=== PATIENT | female | born 1940 | race Caucasian/White ===

== ENCOUNTER → 2018-07-20 | Outpatient (CLI) | payer OTHER, MEDICARE | LOC: FIMAGING 13:14 | PROVIDERS: ATTEND Orthopaedic Surgery | DX: M17.11 Unilateral primary osteoarthritis, right knee (principal) ==

== ENCOUNTER → 2018-08-02 | Outpatient (CLI) | payer OTHER, MEDICARE | LOC: GIMAGING 14:45 ==

== ENCOUNTER 2018-08-15 08:29 | Observation (INO) | payer OTHER, MEDICARE ==
--- NOTE | 2018-08-15 06:19 | PDHPUP ---
History & Physical Update H&P update statement: This history and physical update is based on an assessment of the patient which was completed after admission or registration (within 24 hours), but prior to the surgery/procedure. H&P update: H&P reviewed & patient examined, no change in patient's condition since H&P completed
[~2018-08-15 08:29] MED LIST: ROPIVACAINE 0.2% 80 MG, EPINEPHrine 0.2 MG, KETOROLAC TROMETHAMINE 30 MG in SYRINGE 0 ML IU ONE; TRANEXAMIC ACID 3,000 MG in NS (SYRINGE) 50 ML IRR ONE; TRANEXAMIC ACID 3,000 MG/50 ML BAG IRR ONE; VANCOMYCIN 1 GM VIAL ONE
[2018-08-15] MEDS ORDERED: DEXAMETHASONE 4 MG/ML VIAL IVP ONE (11:06)
[2018-08-15] MEDS ORDERED: ACETAMINOPHEN 325 MG TAB PO ONE (11:06)
[2018-08-15] MEDS ORDERED: FAMOTIDINE 20 MG TAB PO ONE (11:06)
[2018-08-15] MEDS ORDERED: ceFAZolin 2 GM/DEXTROSE 100 ML IV ONE (11:06)
[2018-08-15] MEDS ORDERED: LR 1,000 ML IV ONE (11:07)
--- NOTE | 2018-08-15 11:16 | PDANEPAE ---
ANE History of Present Illness OA knee ANE Past Medical History - Cardiovascular History Hx Hypertension: Yes Hx Arrhythmias: No Hx Chest Pain: No Hx Coronary Artery / Peripheral Vascular Disease: No Hx CHF / Valvular Disease: No Hx Palpitations: No Cardiovascular History Comment: pcp monitors bp medications - Pulmonary History Hx COPD: No Hx Asthma/Reactive Airway Disease: No Hx Recent Upper Respiratory Infection: No Hx Oxygen in Use at Home: No Hx Sleep Apnea: No Sleep Apnea Screening Result - Last Documented: Negative - Neurologic History Hx Cerebrovascular Accident: No Hx Seizures: No Hx Dementia: No - Endocrine History Hx Diabetes: No Hypothyroid: No Hyperthyroid: No Obesity: no - Renal History Hx Renal Disorders: Yes Renal History Comment: hx of kidney stones. recent uti - Liver History Hx Hepatic Disorders: No - Neurological & Psychiatric Hx Hx Neurological and Psychiatric Disorders: Yes Neurological / Psychiatric History Comment: anxiety. depression. insomnia - Cancer History Hx Cancer: Yes Cancer History Comment: basal cell - Congenital Disorder History Hx Congenital Disorders: No - GI History GERD: mild Hx Gastrointestinal Disorders: Yes Gastrointestinal History Comment: GERD - Other Health History Other Health History: OA. wears glasses. bilateral hearing aides - Chronic Pain History Chronic Pain: Yes (right knee) - Surgical History Prior Surgeries: vilma. lithotripsy ANE Review of Systems Review of systems is: negative Review of Systems: - Exercise capacity METS (RN): 4 METS ANE Patient History - Allergies Allergies/Adverse Reactions: No Known Allergies Allergy (Verified 08/01/18 10:52) - Home Medications Home medications: home medication list seen and reviewed Home Medications: Atorvastatin Calcium [Lipitor 10 mg (*)] 10 mg PO DAILY 07/27/18 [Last Taken Unknown] Carboxymethylcellulose 1% [Refresh Celluvisc (*)] 1 drop EACHEYE DAILY PRN 07/27 [Last Taken Unknown] Escitalopram Oxalate [Lexapro] 10 mg PO DAILY 07/27/18 [Last Taken Unknown] Herbals/Supplements -Info Only 1 ea PO DAILY 07/27/18 [Last Taken 08/01/18] Losartan Potassium 100 mg PO DAILY 07/27/18 [Last Taken Unknown] Omeprazole 20 mg PO DAILY 07/27/18 [Last Taken Unknown] amLODIPine BESYLATE [Norvasc 5 mg (*)] 5 mg PO DAILY 07/27/18 [Last Taken Unknown] - NPO status NPO Status: no food or drink >8 hours - Anes Hx Anes Hx: no prior problems - Smoking Hx Smoking Status: Former smoker Marijuana use: No - Alcohol Use Alcohol Use: None - Family Anes Hx Family Anes Hx: none Family Hx Anesthesia Complications: none ANE Labs/Vital Signs - Vital Signs Height: 160.02 cm Weight: 69.853 kg ANE Physical Exam - Airway Neck exam: FROM Mallampati Score: Class 2 Mouth exam: normal dental/mouth exam - Pulmonary Pulmonary: no respiratory distress, clear to auscultation - Cardiovascular Cardiovascular: regular rate and rhythym, no murmur, rub, or gallop - ASA Status ASA Status: II ANE Anesthesia Plan Anesthesia Plan: spinal Regional Anesthesia: single shot NB
[2018-08-15] MEDS ORDERED: MIDAZOLAM 2 MG/2 ML VIAL IVP ONE (12:41)
[2018-08-15] MEDS ORDERED: MIDAZOLAM 2 MG/2 ML VIAL ONE (12:42)
[2018-08-15] MEDS ORDERED: PROPOFOL/EMULSION 500 MG/50 ML BOTTLE IV ONE (12:47)
[2018-08-15] MEDS ORDERED: LIDOCAINE 2% 5 ML SDV ONE (12:48)
[2018-08-15] MEDS ORDERED: BUPIVACAINE/DEXTROSE 7.5MG/ML 2 ML SPINAL AMP SP ONE (12:48)
[2018-08-15] MEDS ORDERED: ROPIVACAINE HCL 150 MG/30 ML INJ ONE (12:48)
[2018-08-15] MEDS ORDERED: ONDANSETRON 4 MG/2 ML VIAL IVP PRN ×2 (13:49→14:19)
[2018-08-15] MEDS ORDERED: LR 500 ML IV PRN (13:49)
[2018-08-15] MEDS ORDERED: NALOXONE HCL 0.4 MG/ML INJ IVP PRN (13:49)
[2018-08-15] MEDS ORDERED: fentaNYL 100 MCG/2 ML INJ IVP PRN (13:49)
[2018-08-15] MEDS ORDERED: HYDROmorphONE/DILAUDID 2 MG/ML INJ IVP PRN (13:49)
--- NOTE | 2018-08-15 13:49 | POSTANESTH ---
Post Anesthetic Evaluation Cardiovascular Status: Normal, Stable Respiratory Status: Normal, Stable Level of Consciousness/Mental Status: Can Participate in Eval Pain Control: Adequate, Prn Tx Ordered Nausea/Vomiting Control: Adequate, Prn Tx Ordered Complications Possibly Related to Anesthesia: None Noted
[2018-08-15] MEDS ORDERED: POLYETHYLENE GLYCOL 3350 17 GM PKT PO PRN (14:19)
[2018-08-15] MEDS ORDERED: BISACODYL 10 MG SUPP PR PRN (14:19)
[2018-08-15] MEDS ORDERED: LACTULOSE 20 GM/30 ML UDCUP PO PRN (14:19)
[2018-08-15] MEDS ORDERED: TEMAZEPAM 15 MG CAP PO PRN (14:19)
[2018-08-15] MEDS ORDERED: PROMETHAZINE HCL 25 MG SUPPR PR PRN (14:19)
[2018-08-15] MEDS ORDERED: diphenhydrAMINE 25 MG CAP PO PRN (14:19)
[2018-08-15] MEDS ORDERED: METOCLOPRAMIDE 10 MG/2 ML VIAL IVP PRN (14:19)
[2018-08-15] MEDS ORDERED: MAGNESIUM HYDROXIDE 30 ML UDCUP PO PRN (14:19)
[2018-08-15] MEDS ORDERED: DIPHENOXYLATE/ATROPINE LOMOTIL 1 TAB PO PRN (14:19)
[2018-08-15] MEDS ORDERED: CYCLOBENZAPRINE 10 MG TAB PO PRN (14:19)
[2018-08-15] MEDS ORDERED: ONDANSETRON DISINTEGRATING 4 MG TAB PO PRN (14:19)
[2018-08-15] MEDS ORDERED: PROMETHAZINE HCL 25 MG/ML INJ IVP PRN (14:19)
--- NOTE | 2018-08-15 14:19 | POSTOPPROG ---
Post Op Note Date of Operation: 08/15/18 Surgeon: Reed Thakur Supervisor Coating: Rachel Thakur and Casandra Tan PA-C Anesthesiologist: Dr. Anaya Levy Anesthesia: Spinal, Other (Specify) (adductor canal block) Pre-op Diagnosis: OA of right medial knee Post-op Diagnosis: same Indication: right knee pain Procedure: right medial PKA Findings: severe OA of right medial knee Inf/Abcess present in the surg proc area at time of surgery?: No EBL: 50-100
[2018-08-15] MEDS ORDERED: LR 1,000 ML IV SCH (14:30)
[2018-08-15] MEDS ORDERED: CARBOXYMETHYLCELLULOSE 1% 0.4 ML DROPERETTE EACHEYE PRN (14:47)
[2018-08-15] MEDS ORDERED: oxyCODONE IR 5 MG TAB ONE (14:57)
[2018-08-15] MEDS: oxyCODONE IR 5 MG TAB PO PRN (15:05)
[2018-08-15] MEDS: ASPIRIN 81 MG CHEWABLE TAB PO SCH (20:27)
[2018-08-15] MEDS: FAMOTIDINE 20 MG TAB PO SCH (20:27)
[2018-08-15] MEDS: SENNOSIDES/DOCUSATE SODIUM TAB PO SCH (20:28)
[2018-08-15] MEDS: ACETAMINOPHEN 325 MG TAB PO SCH (20:29)
[2018-08-15] MEDS: ceFAZolin 2 GM/DEXTROSE 100 ML IV SCH (21:47)
[2018-08-16] MEDS: ACETAMINOPHEN 325 MG TAB PO SCH ×2 (02:40→09:25)
[2018-08-16] MEDS: ceFAZolin 2 GM/DEXTROSE 100 ML IV SCH (04:56)
[2018-08-16] MEDS ORDERED: LOSARTAN POTASSIUM 50 MG TAB PO SCH (09:00)
[2018-08-16] MEDS ORDERED: ATORVASTATIN CALCIUM 10 MG TAB PO SCH (09:00)
[2018-08-16] MEDS ORDERED: ESCITALOPRAM OXALATE 10 MG TAB PO SCH (09:00)
[2018-08-16] MEDS ORDERED: amLODIPine BESYLATE 5 MG TAB PO SCH (09:00)
--- NOTE | 2018-08-16 09:05 | SOAPPROG ---
SOAP Progress Note Assessment/Plan: Assessment: Patient is doing well POD 1 s/p R medial PKA Pain management: pain is well controlled on oral pain meds. VTE ppx: recommend aspirin 81 mg BID for 4 weeks, cont QUINTIN and SCDs Anemia: level is expected initially postop. Asymptomatic. Continue to monitor D/c planning: Patient has done better than anticipated and would like to be discharged to home today. Patient must be released from PT before discharge to home. Plan: 08/16/18 09:04 Subjective: Patient is doing well today, denies SOB, chest pain and N/V. patient states she feels great and is eager for discharge to home. Objective: Vital Signs Temp Pulse Resp BP Pulse Ox 36.4 C 76 19 158/92 H 91 L 08/16/18 07:13 08/16/18 07:13 08/16/18 07:13 08/16/18 07:13 08/16/18 07:13 Laboratory Results 08/16/18 04:41 08/15/18 08/16/18 08/17/18 05:59 05:59 05:59 Intake Total 1240 Output Total 975 200 Balance 265 -200 RLE: incision dressing is clean and dry, NVI, +pf/df ICD10 Worksheet Patient Problems: Problems Problem Status Onset Primary localized osteoarthritis of right knee Acute
[2018-08-16] MEDS: oxyCODONE IR 5 MG TAB PO PRN (09:23)
[2018-08-16] MEDS: ASPIRIN 81 MG CHEWABLE TAB PO SCH (09:24)
[2018-08-16] MEDS: SENNOSIDES/DOCUSATE SODIUM TAB PO SCH (09:24)
[2018-08-16] MEDS: FAMOTIDINE 20 MG TAB PO SCH (09:25)
--- NOTE | 2018-08-16 10:00 | ASMTLACE ---
LACE Length of stay for Answers: 2 days current admission Acuity / Level of Answers: No Care: Did the patient have an inpatient admission? Comorbidities - select Answers: Opioid dependence all that apply / Chronic pain Other Notes: HTN # of Emergency department Answers: 0 visits in the last 6 months Social determinants Answers: Mental health diagnosis (anxiety, depression, pers onality disorders, etc.) Score: 10 Date Signed: 08/16/2018 10:00 AM Electronically Signed By:AYE Contreras
--- NOTE | 2018-08-16 10:51 | GDS ---
[f rep st] DISCHARGE SUMMARY ADMISSION DIAGNOSIS: Right knee osteoarthritis. DISCHARGE DIAGNOSIS: Right knee osteoarthritis. PROCEDURE: Right partial knee arthroplasty, medial compartment, robotic assisted. VTE PROPHYLAXIS: Recommend aspirin 81 mg twice daily for 4 weeks. BRIEF DESCRIPTION OF HOSPITAL STAY: Patient was admitted for an elective joint arthroplasty. The pa marjorie tolerated the procedure well and has passed physical therapy. The patient was given appropriat e antibiotic prophylaxis and venous thromboembolism prophylaxis. The patient's pain was well control led on oral pain medication, patient was holding down food, and had urinated. Decision was made to d ischarge the patient. The patient was given post-operative prescriptions pre-operatively. PLAN: Please follow up as scheduled at Dr. Thakur's office September 04, at 11 a.m. /[id number]/MODL
[2018-08-16 11:11] VITALS: BP 127/75
--- NOTE | 2018-08-16 16:28 | GOP ---
[f rep st] OPERATIVE REPORT DATE OF OPERATION: 08/15/2018 SURGEON: Sole Thakur MD TAPE MAKER: Rachel Thakur PA-C, and Alyssa Tan PA-C. ANESTHESIA: Spinal. PREOPERATIVE DIAGNOSIS: Right knee osteoarthritis. POSTOPERATIVE DIAGNOSIS: Right knee osteoarthritis. PROCEDURE PERFORMED: Right medial compartment partial replacement with navigation, roboti c assist, CHIN uni-knee. FINDINGS: ESTIMATED BLOOD LOSS: 30 cc. INDICATIONS: This is a 78-year-old female with progressive pain of the right knee unresponsive to co nservative care. Risks and benefits of surgical intervention were explained in detail. DESCRIPTION OF PROCEDURE: The patient was brought to the operating room and placed on the table in s upine position. Spinal anesthesia was induced without difficulty. A pneumatic tourniquet was applie d about the right proximal thigh and the leg was prepped and draped in sterile fashion. Attention wa s turned first to the distal aspect of the right femur. At 3 cm proximal to the lateral rise of the femur, 2 percutaneous half pins were placed for fixation of the femoral array. In a similar fashion, 2 pins were placed anterolateral on the tibia for fixation of the tibial array. External land carlos ng and registration of the hip center was performed without difficulty. After exsanguination by elevation, the tourniquet was inflated to 250 mmHg. Incision was made from the tibial tuberosity to the superior pole of the patella. Dissection was car ried out through the subcutaneous tissue to the deep fascia using Bovie electrocautery for hemostasis . Medial parapatellar arthrotomy was carried out to the superior pole of the patella. The medial co llateral ligament was elevated and the infrapatellar fat pad was resected. Internal femoral and tibi al registration was carried out without difficulty and the femoral and tibial checkpoints were placed and verified for accuracy. Attention was turned to the femur. The foot print for the size 3 femoral component was cut with the 6 mm bur using the [employer] robotic system and verified for accuracy against the CT based plan. The hole was cut for the femoral post. In a similar fashion, the 6 mm bur was used to cut the foot print for t he size 3 tibial component using the [employer] system and verified for accuracy against the CT based plan. Attention was turned to the posterior aspect of the knee and remnants of the medial meniscus were exc ised. The posterior capsule was injected with ropivacaine, epinephrine and Toradol. Trial reduction was carried out and there was excellent range of motion, alignment and stability using the size 3 fe moral component and the size 3 tibial component. All trials were then removed. The joint was thoroughly irrigated and carefully dried. One package o f cement and 1 gram of vancomycin were mixed in the vacuum mixer and placed on the fixation surfaces of all components. The components were implanted and all excess cement was thoroughly removed. Impla nt placement was verified against the CT view plan and found to be excellent. The tourniquet was deflated and all bleeders were coagulated. The wound was thoroughly irrigated and closed using interrupted sutures of 2-0 Vicryl for the joint capsule. The subcu was closed with 3-0 Vicryl and the skin with 4-0 Monocryl. Dermabond and Steri-Strips were applied, followed by a compr essive dressing. The patient was then moved from the operating room to the recovery room in good con dition, having tolerated the procedure well. PATHOLOGY: Severe medial compartment osteoarthritis. CASE CLASSIFICATION: Clean. /[id number]/MODL
== END 2018-08-16 12:27 | disposition home or self-care (01) ==
LOC: F3N 10:46 → INTOOBSV 10:46 → F3N 15:43
PROVIDERS: ADMIT Orthopaedic Surgery; ATTEND Orthopaedic Surgery
PROC: 0SUC0JZ Supplement Right Knee Joint with Synthetic Substitute, Open Approach (ICD-10-PCS; principal; 2018-08-15 13:00)
DX: M17.11 Unilateral primary osteoarthritis, right knee (principal); I10 Essential (primary) hypertension; K21.9 Gastro-esophageal reflux disease without esophagitis; Z85.828 Personal history of other malignant neoplasm of skin; Z87.891 Personal history of nicotine dependence
CPT/HCPCS: 27446; 73560; 97161; C1713; C1776; J0171; J0690; J1100; J1885; J2250; J2704; J2795; J3370